=== PATIENT | male | born 1970 | race Caucasian/White ===

== ENCOUNTER 2017-08-14 01:29 | Emergency (ER) | payer BC, OTHER ==
[2017-08-14 01:58] VITALS: BP 133/90; PULSE 80; TEMP 98; BMI 31.4
[2017-08-14] MEDS ORDERED: TETRACAINE 0.5% HCL 0.6ML DROPPER.BOTTLE OS ONE (02:14)
[2017-08-14] MEDS ORDERED: TETRACAINE 0.5% OPHTH SOLN 2 ML BOTTLE ONE (02:16)
--- NOTE | 2017-08-14 02:27 | PDOC ---
History of Present Illness - General Chief Complaint: Eye Problem Stated Complaint: EYE PROBLEM Time Seen by Provider: 08/14/17 02:02 History Source: Patient Exam Limitations: No Limitations - History of Present Illness Initial Comments: 08/14/17 02:45 47-year-old male presents to the ER complaining of foreign body sensation to the left eye. Patient states he was sawing something today when he felt something go in his left eye. Patient denies eye pain, diplopia or visual disturbance. Unknown last tetanus. Past History - Past Medical History Allergies/Adverse Reactions: Allergies Allergy/AdvReac Type Severity Reaction Status Date / Time No Known Allergies Allergy Verified 08/14/17 01:57 Home Medications: Ambulatory Orders Ibuprofen [Motrin] 800 mg PO TID #20 tablet 05/07/14 Oxycodone HCl/Acetaminophen [Percocet 5-325 mg Tablet] 1 - 2 tab PO Q6H #20 tablet 05/07/14 Erythromycin 0.5% Eye Ointment [Erythromycin 0.5% Eye Ointment -] 1 applic OS DAILY #2 tube 08/14/17 - Immunization History Immunization Up to Date: Yes - Suicide/Smoking/Psychosocial Hx Smoking History: Never smoked Have you smoked in the past 12 months: No Number of Cigarettes Smoked Daily: 20 Information on smoking cessation initiated: No 'Breaking Loose' booklet given: 05/26/13 Hx Alcohol Use: No Drug/Substance Use Hx: No Substance Use Type: None Review of Systems - Review of Systems Able to Perform ROS?: Yes Comments:: 08/14/17 02:46 CONSTITUTIONAL: Absent: fever, chills HEENT: Absent: rhinorrhea, nasal congestion, throat pain, throat swelling, difficulty swallowing, mouth swelling, ear pain, eye pain, visual Changes Is the patient limited Bulgarian proficient: No *Physical Exam - Vital Signs Last Vital Signs Temp Pulse Resp BP Pulse Ox 98.0 F 80 18 133/90 97 08/14/17 01:54 08/14/17 01:54 08/14/17 01:54 08/14/17 01:54 08/14/17 01:54 - Physical Exam Comments: 08/14/17 02:46 GENERAL: Well developed, well nourished. Awake and alert. No acute distress. HEENT: Normocephalic, atraumatic. PERRLA, EOMI. No conjunctival pallor. Sclera are non- icteric. Moist mucous membranes. Oropharynx is clear. Left eye/fluorescein strip after tetracaine/2 drops Corneal abrasion to patients 3 o'clock position measuring approximately 1 mm Patient also has foreign bodies back to the 9 o'clock position EOMI No hyphema Conjunctiva not injected Procedure: Tetracaine 2 drops left eye Fluorescein stained Foreign body removed with 18-gauge needle Erythromycin ophthalmic ointment *DC/Admit/Observation/Transfer Diagnosis at time of Disposition: Corneal abrasion, left Qualifiers: Encounter type: initial encounter Qualified Code(s): S05.02XA - Injury of conjunctiva and corneal abrasion without foreign body, left eye, initial encounter Foreign body in eye Qualifiers: Encounter type: initial encounter Laterality: left Qualified Code(s): T15.92XA - Foreign body on external eye, part unspecified, left eye, initial encounter - Discharge Dispostion Disposition: HOME Condition at time of disposition: Fair Admit: No - Prescriptions Prescriptions: Erythromycin 0.5% Eye Ointment [Erythromycin 0.5% Eye Ointment -] 1 applic OS DAILY #2 tube - Referrals Referrals: Kane Hoskins MD [Staff Physician] - - Patient Instructions Printed Discharge Instructions: DI for Corneal Abrasion, DI for Foreign Body in the Eye Additional Instructions: Apply erythromycin ophthalmic ointment to the left eye 4 times a day for 3 days You must follow with the test design engineer on Tuesday Return back to the ER for blurry vision, visual disturbance or eye pain - Post Discharge Activity Forms/Work/School Notes: Back to Work
[2017-08-14] MEDS ORDERED: ERYTHROMYCIN 0.5% OPHTHALMIC OINTMENT 3.5 GM TUBE OS ONE (02:28)
[2017-08-14] MEDS ORDERED: ERYTHROMYCIN 0.5% OPHTHALMIC OINTMENT 3.5 GM TUBE ONE (02:29)
[2017-08-14] MEDS ORDERED: TETANUS AND DIPHTHERIA TOXOID 0.5 ML DISP.SYRIN IM ONE (02:41)
== END 2017-08-14 03:53 | disposition home or self-care (01) ==
LOC: JER 01:29
PROC: 08C9XZZ Extirpation of Matter from Left Cornea, External Approach (ICD-10-PCS; principal; 2017-08-14)
DX: T15.02XA Foreign body in cornea, left eye, initial encounter (principal); Y99.8 Other external cause status; Y93.89 Activity, other specified; Y92.89 Other specified places as the place of occurrence of the external cause
CPT/HCPCS: 99282-25

== ENCOUNTER 2017-12-05 16:59 | Emergency (ER) | payer OTHER, BC ==
[2017-12-05 17:04] VITALS: BP 146/80; PULSE 88; TEMP 98; BMI 31.4
--- NOTE | 2017-12-05 17:04 | PDOC ---
Rapid Medical Evaluation Time Seen by Provider: 12/05/17 17:02 Medical Evaluation: Allergies Allergy/AdvReac Type Severity Reaction Status Date / Time No Known Allergies Allergy Verified 12/05/17 17:01 12/05/17 17:02 Healthy 47-year-old male twisted right ankle stepping off of raised area into hole at work about 30 mins prior to arrival. V/s unremarkable. Swelling and tenderness right lateral malleolus. -Ankle xray -To FT for further evaluation
--- NOTE | 2017-12-05 17:31 | PDOC ---
History of Present Illness - General Chief Complaint: Injury Stated Complaint: ANKLE INJURY Time Seen by Provider: 12/05/17 17:02 History Source: Patient Exam Limitations: No Limitations - History of Present Illness Initial Comments: Patient is a 47-year-old male who states that he accidentally stepped into a hole in the ground approximately 1 hour prior to arrival and twisted his right ankle. He now has right ankle pain. Patient denies previous injury or surgeries to his right ankle. Patient describes the pain as a throb, worse with ambulation and rates it at a 3 out of 10. Patient denies any relieving factors however states weightbearing exacerbates his discomfort. 12/05/17 17:26 Past History - Travel Traveled outside of the country in the last 30 days: No Close contact w/someone who was outside of country & ill: No - Past Medical History Allergies/Adverse Reactions: Allergies Allergy/AdvReac Type Severity Reaction Status Date / Time No Known Allergies Allergy Verified 12/05/17 17:01 Home Medications: Ambulatory Orders NK [No Known Home Medication] 12/05/17 COPD: No DVT: No Dementia: No Diabetes: No - Immunization History Immunization Up to Date: Yes - Suicide/Smoking/Psychosocial Hx Smoking History: Never smoked Have you smoked in the past 12 months: No Number of Cigarettes Smoked Daily: 20 Information on smoking cessation initiated: Yes 'Breaking Loose' booklet given: 12/05/17 Hx Alcohol Use: No Drug/Substance Use Hx: No Substance Use Type: None Review of Systems - Review of Systems Able to Perform ROS?: Yes All Other Systems: Reviewed and Negative *Physical Exam - Vital Signs Last Vital Signs Temp Pulse Resp BP Pulse Ox 98.0 F 88 18 146/80 100 12/05/17 17:02 12/05/17 17:02 12/05/17 17:02 12/05/17 17:02 12/05/17 17:02 - Physical Exam Comments: Constitutional: VS stated, pt appears in no apparent distress; ambulated to examination room with a slight limp. SKin: Warm and dry. Intact, no lesions or excoriations. Head: Normocephalic; atraumatic Eyes: conjunctiva pink without injection or discharge. Throat: Oropharynx with pink and moist mucosa. Lungs: Bilateral breath sounds clear upon auscultation. No adventitious breath sounds. Heart: Regular rate and rhythm, S1/S2 auscultated. No murmurs, rubs, or gallops. No visible pulsations, heaves, or lifts on precordium. Musculoskeletal: Focused on the right ankle. Patient has pain upon palpation and moderate edema to the right lateral malleolus. Patient can dorsiflex and plantar flex without difficulty. Pedal pulses present, cap refill less than 2 seconds, sensation intact. Neurologic: Awake, alert. Conversation fluent. Psychiatric: Appropriate affect. 12/05/17 17:28 ED Treatment Course - RADIOLOGY Radiology Studies Ordered: 12/05/17 17:30 Pt's right ankle xray was reviewed by myself as negative. Pt placed in an dejuan wrap with crutches. *DC/Admit/Observation/Transfer Diagnosis at time of Disposition: Ankle sprain - Discharge Dispostion Disposition: HOME Condition at time of disposition: Worsened Decision to Admit order: No - Referrals Referrals: Sanaz Robles MD [Primary Care Provider] - - Patient Instructions Printed Discharge Instructions: DI for Ankle Sprain Additional Instructions: Dejuan wrap on for comfort measures, elevate, ice 20 minutes on/20 minutes off for the next 24 hours. Crutches, weightbearing as tolerated. Ibuprofen 600 mg every 6 hours. Follow-up with your PCP. - Post Discharge Activity Forms/Work/School Notes: Back to Work
== END 2017-12-05 17:36 | disposition home or self-care (01) ==
LOC: JERFT 16:59
DX: S93.401A Sprain of unspecified ligament of right ankle, initial encounter (principal); X50.1XXA Overexertion from prolonged static or awkward postures, initial encounter; Y93.01 Activity, walking, marching and hiking; Y92.89 Other specified places as the place of occurrence of the external cause; Y99.0 Civilian activity done for income or pay
CPT/HCPCS: 73610-TC-RT-FY; 73630-TC-RT-FY; 99281-25

== ENCOUNTER 2018-08-01 11:00 | Emergency (ER) | payer OTHER ==
[2018-08-01 11:09] VITALS: BP 135/74; PULSE 89; TEMP 98.5; BMI 32.3
[2018-08-01] MEDS ORDERED: KETOROLAC TROMETHAMINE 60 MG/2 ML VIAL IM ONE (12:02)
[2018-08-01] MEDS ORDERED: SODIUM CHLORIDE 1,000 ML IV STA (12:15)
--- NOTE | 2018-08-01 12:19 | PDOC ---
History of Present Illness - General Chief Complaint: Pain, Acute Stated Complaint: LOWER BACK / ABD PAIN Time Seen by Provider: 08/01/18 11:53 History Source: Patient Exam Limitations: Clinical Condition - History of Present Illness Initial Comments: 08/01/18 12:14 Knee stones present with complaint of three-day history of left lower quadrant pain and right flank pain which is consistent with the pain she gets when he has kidney stone. Patient reported nausea but no vomiting. Patient was seen in urgent care yesterday and was told he might have a kidney stone and discharged home on Levaquin antibiotics but was not given anything for pain. Patient came back today. Due to pain getting worse. Denies vomiting, fever, diarrhea. Denies any other symptoms Timing/Duration: other (2 days) Past History - Past Medical History Allergies/Adverse Reactions: Allergies Allergy/AdvReac Type Severity Reaction Status Date / Time No Known Allergies Allergy Verified 12/05/17 17:01 Home Medications: Ambulatory Orders Ketorolac Tromethamine [Toradol -] 10 mg PO Q6H PRN #20 tablet 08/01/18 Tamsulosin HCl [Flomax] 0.4 mg PO DAILY #7 capsule 08/01/18 COPD: No DVT: No Dementia: No Diabetes: No - Immunization History Immunization Up to Date: Yes - Suicide/Smoking/Psychosocial Hx Smoking History: Current every day smoker Have you smoked in the past 12 months: Yes Number of Cigarettes Smoked Daily: 12 Information on smoking cessation initiated: No 'Breaking Loose' booklet given: 12/05/17 Hx Alcohol Use: No Drug/Substance Use Hx: No Substance Use Type: None Review of Systems - Review of Systems Able to Perform ROS?: Yes Is the patient limited [place]ican proficient: No Constitutional: No: Fever, Weakness HEENTM: No: Symptoms Reported, Dental Problems Cardiac (ROS): No: Symptoms Reported ABD/GI: Yes: See HPI, Nausea, Abdominal cramping (right flank). No: Vomiting : Yes: Flank Pain (right ), Pain (right flank and left lower abd). No: Burning, Dysuria, Discharge, Frequency, Incontinence, Urgency, Testicular Mass, Testicular Swelling, Testicular Pain All Other Systems: Reviewed and Negative *Physical Exam - Vital Signs Last Vital Signs Temp Pulse Resp BP Pulse Ox 98.5 F 89 18 135/74 100 08/01/18 11:06 08/01/18 11:06 08/01/18 11:06 08/01/18 11:06 08/01/18 11:06 - Physical Exam Comments: 08/01/18 12:16 GENERAL: Well developed, well nourished. Awake and alert. No acute distress. HEENT: Normocephalic, atraumatic. PERRLA, EOMI. No conjunctival pallor. Sclera are non-icteric. Moist mucous membranes. Oropharynx is clear. NECK: Supple. Full ROM. CARDIOVASCULAR: Regular rate and rhythm. No murmurs, rubs, or gallops. Distal pulses are 2+ and symmetric. PULMONARY: No evidence of respiratory distress. Lungs clear to auscultation bilaterally. No wheezing, rales or rhonchi. ABDOMINAL: Soft. Non-tender. Non-distended. No rebound or guarding. No organomegaly. Normoactive bowel sounds. MUSCULOSKELETAL Normal range of motion at all joints. SKIN: Warm and dry. Normal capillary refill. No rashes. No jaundice. NEUROLOGICAL: Alert, awake, appropriate. Gait is normal without ataxia. PSYCHIATRIC: Cooperative. Good eye contact. Appropriate mood General Appearance: Yes: Nourished, Appropriately Dressed. No: Apparent Distress ED Treatment Course - LABORATORY CBC & Chemistry Diagram: 08/01/18 12:10 08/01/18 12:10 - RADIOLOGY Radiology Studies Ordered: Category Date Time Status SPIRAL- RENAL-STONE CT [CT] Stat CT Scan 08/01/18 12:02 Ordered Medical Decision Making - Medical Decision Making 08/01/18 12:17 Patient with history of kidney stones present with complaint of three-day history of left abdominal back pain and right flank pain with nausea. Patient reports seen in urgent care which he was prescribed Levaquin antibiotics but nothing for pain and pain has been persistent. Denies vomiting, diarrhea, fever or chills. Clinical exam unremarkable with no tenderness to abdomen or flank area. No CVA tenderness. CBC, CMP and urine labs ordered. Spiral CT ordered to rule out kidney stone. Toradol 60 mg IM ordered for pain. IV hydration with 1 L normal saline ordered. Treat based on lab results 08/01/18 14:[address] shows 3mm partially obstructing stone at UVJ on left side. Patient report improvment of pain with toradol. CBC shows mild elevated WBC which could be stemmed from renal stone. Patient afebrile and stable for outpatient management with PO toradol and flomax with urology follow-up. Patient already on levaquin Abx from urgent care *DC/Admit/Observation/Transfer Diagnosis at time of Disposition: Kidney stone on left side, Flank pain, acute - Discharge Dispostion Disposition: HOME Condition at time of disposition: Stable Decision to Admit order: No - Prescriptions Prescriptions: Ketorolac Tromethamine [Toradol -] 10 mg PO Q6H PRN #20 tablet PRN Reason: pain Tamsulosin HCl [Flomax] 0.4 mg PO DAILY #7 capsule - Referrals Referrals: Duarte Jorgensen MD [Staff Physician] - - Patient Instructions Printed Discharge Instructions: Kidney Stones -- Adult Additional Instructions: Take medications as prescribed. Increase fluid intake. Take prescribed antibiotics from urgent care and finish it. Follow-up with referred urology - Post Discharge Activity
[2018-08-01] MEDS ORDERED: KETOROLAC TROMETHAMINE 60 MG/2 ML VIAL ONE (12:29)
[2018-08-01 12:37] LABS: BASO % 0.5 % (0-2.0); EOS % 0.1 % (0-4.5); HEMATOCRIT 40.7 % (35.4-49); HEMOGLOBIN 14.1 GM/dL (11.7-16.9); LYMPH % 15.4 % (8-40); MCH 30.8 pg (25.7-33.7); MCHC 34.6 g/dl (32.0-35.9); MEAN CELL VOLUME 89.1 fl (80-96); MEAN PLT VOLUME 8.1 fl (7.5-11.1); MONO % 14.7 % (3.8-10.2); NEUT % 69.3 % (42.8-82.8); PLATELET COUNT 215 K/MM3 (134-434); RBC 4.57 M/mm3 (4.00-5.60); WHITE BLOOD COUNT 12.9 K/mm3 (4.0-10.0)
[2018-08-01 12:38] LABS: EPI CELLS 1.3 /HPF (0-5/HPF); URINE APPEARANCE CLEAR; URINE BACTERIA 0.5 /hpf (NEGATIVE); URINE BILIRUBIN NEGATIVE (NEGATIVE); URINE CASTS 9 /lpf (0-8); URINE COLOR YELLOW; URINE GLUCOSE (UA) NEGATIVE (NEGATIVE); URINE KETONE TRACE (NEGATIVE); URINE LEUK ESTERASE NEGATIVE (NEGATIVE); URINE NITRITE NEGATIVE (NEGATIVE); URINE PROTEIN 2+ (NEGATIVE); URINE WBC 1 /hpf (0-5)
[2018-08-01] MEDS ORDERED: KETOROLAC TROMETHAMINE 30 MG/1 ML VIAL IVPUSH ONE (12:50)
[2018-08-01 13:17] LABS: ALBUMIN 3.2 g/dl (3.4-5.0); ALK PHOS 97 U/L (45-117); ANION GAP 7 MMOL/L (8-16); BILIRUBIN,TOTAL 0.2 mg/dL (0.2-1); BLOOD UREA NITROGEN 15 mg/dL (7-18); CALCIUM 8.9 mg/dL (8.5-10.1); CHLORIDE 103 mmol/L (98-107); CO2 24 mmol/L (21-32); GLUCOSE,RANDOM 109 mg/dL (74-106); POTASSIUM 4.4 mmol/L (3.5-5.1); SGOT/AST 30 U/L (15-37); SGPT/ALT 28 U/L (13-61); SODIUM 135 mmol/L (136-145); TOT PROT 7.2 g/dl (6.4-8.2)
--- NOTE | 2018-08-01 13:17 | PDOC ---
*Physical Exam - Vital Signs Last Vital Signs Temp Pulse Resp BP Pulse Ox 98.5 F 89 18 135/74 100 08/01/18 11:06 08/01/18 11:06 08/01/18 11:06 08/01/18 11:06 08/01/18 11:06 ED Treatment Course - LABORATORY CBC & Chemistry Diagram: 08/01/18 12:10 08/01/18 12:10 - ADDITIONAL ORDERS Additional order review: Laboratory Results 08/01/18 12:10 Urine Color Yellow Urine Appearance Clear Urine pH 5.0 Ur Specific [place] 1.032 Urine Protein 2+ H Urine Glucose (UA) Negative Urine Ketones Trace H Urine Blood 3+ H Urine Nitrite Negative Urine Bilirubin Negative Urine Urobilinogen 1.0 Ur Leukocyte Esterase Negative Urine WBC (Auto) 1 Urine Casts (Auto) 9 U Epithel Cells (Auto) 1.3 Urine Bacteria (Auto) 0.5 08/01/18 12:10 RBC 4.57 MCV 89.1 MCHC 34.6 RDW 14.0 MPV 8.1 Neutrophils % 69.3 Lymphocytes % 15.4 Monocytes % 14.7 H Eosinophils % 0.1 Basophils % 0.5 - Medications Given in the ED: ED Medications Discontinued Medications Generic Name Dose Route Start Last Admin Trade Name Freq PRN Reason Stop Dose Admin Sodium Chloride 1,000 mls @ 1,000 mls/hr 08/01/18 12:15 08/01/18 12:52 Normal Saline - IV 08/01/18 13:14 1,000 mls/hr ASDIR STA Administration Ketorolac Tromethamine 30 mg 08/01/18 12:50 08/01/18 12:52 Toradol Injection - IVPUSH 08/01/18 12:51 30 mg ONCE ONE Administration Medical Decision Making - Medical Decision Making 08/01/18 13:16 48y/o M h/o kidney stones with flank pain. treated with levaquin by pcp for presumed UTI, now with increased pain. labs, ua ctap pain control reassess. 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 Cr normal. stable for d/c and f/u. understands return criteria. *DC/Admit/Observation/Transfer - Discharge Dispostion Condition at time of disposition: Stable - Referrals - Patient Instructions - Post Discharge Activity
[2018-08-01 14:02] LABS: URINE RBC 4.5 /hpf (0-4)
== END 2018-08-01 15:00 | disposition home or self-care (01) ==
LOC: JER 11:00
PROC: 3E0337Z Introduction of Electrolytic and Water Balance Substance into Peripheral Vein, Percutaneous Approach (ICD-10-PCS; principal; 2018-08-01)
PROC: 3E0333Z Introduction of Anti-inflammatory into Peripheral Vein, Percutaneous Approach (ICD-10-PCS; 2018-08-01)
DX: N20.0 Calculus of kidney (principal); Z87.442 Personal history of urinary calculi
CPT/HCPCS: 36415; 74176-TC; 80053; 81003; 85025; 99282-25; J7030

== ENCOUNTER 2018-08-14 13:00 | Emergency (ER) | payer OTHER ==
[2018-08-14 13:44] VITALS: BP 129/85; PULSE 85; TEMP 97.8; BMI 32.3
[2018-08-14] MEDS ORDERED: KETOROLAC TROMETHAMINE 60 MG/2 ML VIAL IM ONE (13:45)
[2018-08-14] MEDS ORDERED: KETOROLAC TROMETHAMINE 60 MG/2 ML VIAL ONE (13:49)
--- NOTE | 2018-08-14 14:15 | PDOC ---
History of Present Illness - General Chief Complaint: Injury Stated Complaint: RIGHT SHOULDER PAIN Time Seen by Provider: 08/14/18 13:38 History Source: Patient Exam Limitations: No Limitations - History of Present Illness Initial Comments: 08/14/18 13:46 48M with no PMH who presents with R shoulder pain. The patient states that he feels a sharp pain from his R paraspinal neck down to his R elbow. He states that this first happened 3 weeks ago and then the pain resided on its own after taking aleve/motrin. He states that this pain first happened when he was taking TV's off the wall. The pain subsided with aleve/motrin. Today, he was moving heavy bags of garbage and it irritated his shoulder. He denies numbness, tingling, weakness, fever, chills, CP, SOB. Past History - Past Medical History Allergies/Adverse Reactions: Allergies Allergy/AdvReac Type Severity Reaction Status Date / Time No Known Allergies Allergy Verified 08/14/18 13:38 Home Medications: Ambulatory Orders NK [No Known Home Medication] 08/14/18 COPD: No DVT: No Dementia: No Diabetes: No - Immunization History Immunization Up to Date: Yes - Suicide/Smoking/Psychosocial Hx Smoking History: Current every day smoker Have you smoked in the past 12 months: Yes Number of Cigarettes Smoked Daily: 20 Information on smoking cessation initiated: No 'Breaking Loose' booklet given: 12/05/17 Hx Alcohol Use: No Drug/Substance Use Hx: No Substance Use Type: None Review of Systems - Review of Systems Able to Perform ROS?: Yes Comments:: 08/14/18 14:15 GENERAL/CONSTITUTIONAL: No fever or chills. No weakness. HEAD, EYES, EARS, NOSE AND THROAT: No change in vision. No ear pain or discharge. No sore throat. CARDIOVASCULAR: No chest pain, palpitations, or lightheadedness. RESPIRATORY: No cough, wheezing, shortness of breath, or hemoptysis. GASTROINTESTINAL: No nausea, vomiting, diarrhea, constipation, or abdominal pain. GENITOURINARY: No dysuria, frequency, hematuria, or change in urination. MUSCULOSKELETAL: + for R shoulder pain. SKIN: No rash or lesions. NEUROLOGIC: No headache, numbness, tingling, focal weakness, loss of consciousness, or change in strength/sensation. Is the patient limited Yi proficient: No *Physical Exam - Vital Signs Last Vital Signs Temp Pulse Resp BP Pulse Ox 97.8 F 85 15 129/85 97 08/14/18 13:23 08/14/18 13:23 08/14/18 13:23 08/14/18 13:23 08/14/18 13:23 - Physical Exam Comments: 08/14/18 14:16 GENERAL: Well developed, well nourished. Awake and alert. No acute distress. HEENT: Normocephalic, atraumatic. Hearing grossly normal. Moist mucous membranes. PERRLA, EOMI. No conjunctival pallor. Sclera are non-icteric. NECK: Supple. Full ROM. No JVD. CARDIOVASCULAR: Distal pulses are 2+ and symmetric. MUSCULOSKELETAL: Normal range of motion at all joints. No bony deformities or tenderness. EXTREMITIES: No cyanosis. No clubbing. No edema. No calf tenderness or swelling. SKIN: Warm and dry. Normal capillary refill. No rashes. No jaundice. NEUROLOGICAL: Alert, awake, appropriate. Cranial nerves 2-12 grossly intact. No deficits to light touch and temperature in face, upper extremities and lower extremities. 5/5 strength in deltoids, biceps, triceps, quadriceps, hamstrings, and gastrocnemius. Normoreflexic in the upper and lower extremities. Normal speech. Gait is normal without ataxia. PSYCHIATRIC: Cooperative. Good eye contact. Appropriate mood and affect. Medical Decision Making - Medical Decision Making 08/14/18 14:17 48M with no PMH who presents with R shoulder pain, likely MSK/cervical radiculopathy. Will give toradol for inflammation and neurosurgery referral. *DC/Admit/Observation/Transfer Diagnosis at time of Disposition: Shoulder sprain Qualifiers: Encounter type: initial encounter Shoulder sprain type: unspecified sprain Laterality: right Qualified Code(s): S43.401A - Unspecified sprain of right shoulder joint, initial encounter - Discharge Dispostion Disposition: HOME Condition at time of disposition: Good Decision to Admit order: No - Referrals Referrals: Lelo Hannah MD [Primary Care Provider] - Sj Riley MD, FAANS [Staff Physician] - - Patient Instructions Printed Discharge Instructions: DI for Shoulder Pain Additional Instructions: Your ER visit is not complete until your follow up with your primary care physician. Please follow up with your primary care physician in 1-2 days. Please follow up with Dr. Riley for your neck and shoulder pain. Please return to the ER if you have any signs or symptoms of chest pain, shortness of breath, uncontrollable fever, chills, nausea, vomiting, numbness, tingling, or weakness in any part of your body, changes in vision, or slurred speech. Please take your medications as prescribed. Please return to the ER if symptoms persist, worsen, or new symptoms arise. - Post Discharge Activity
[2018-08-14] MEDS ORDERED: METHOCARBAMOL 500 MG TABLET PO ONE (14:20)
[2018-08-14] MEDS ORDERED: METHOCARBAMOL 500 MG TABLET ONE (14:20)
--- NOTE | 2018-08-14 14:20 | PDOC ---
Attending Attestation - Resident Resident Name: Sukhjinder Goodrich - ED Attending Attestation I have performed the following: I have examined & evaluated the patient, The case was reviewed & discussed with the resident, I agree w/resident's findings & plan, Exceptions are as noted - HPI HPI: 08/14/18 14:45 48yo male with R upper back/shoulder pain. Pt states he was lifting a 70 inch tv off a wall and it fell with its weight onto his R arm about 3 weeks ago. Bowers a twinge of pain at the time to the R upper back/neck. States he has felt the pain daily. States he feels the pain coming down the R arm. No weakness. No paresthesias. Has used motrin/aleve for the pain which does help. Has used epson salt bathes, which does help. Has used ice - which helps. States still with pain and feels tight today. - Physicial Exam PE: 08/14/18 14:46 Gen: aaox3, nad heart: +s1s2 reg lungs: cta b/l neck: no midline ttp, no stepoffs or deformities, R paraspinal and trapezius ttp , tight/ropy muscles abd: soft, nt/nd +bs ext: muscle strength 5/5 UE and LE, sensation intact, pulses intact, brisk cap refill to hands - Medical Decision Making 08/14/18 14:19 I, Dr. Zina Murphy, DO, attest that this document has been prepared under my direction and personally reviewed by me in its entirety. I further attest, that it accurately reflects all work, treatment, procedures and medical decision -making performed by me. 08/14/18 14:47 a/p: 48yo male with R upper back and neck pain -suspect muscle spasm from carrying heavy tv off the wall -pt from work with pain today -no neuro deficits -will give robaxin and im toradol -will monitor and reassess 08/14/18 14:49 pt states pain improved rx for robaxin sent to pharmacy will give work note and neurosx follow up
== END 2018-08-14 14:53 | disposition home or self-care (01) ==
LOC: FER 13:00
PROC: 3E0233Z Introduction of Anti-inflammatory into Muscle, Percutaneous Approach (ICD-10-PCS; principal; 2018-08-14)
DX: S43.401A Unspecified sprain of right shoulder joint, initial encounter (principal); X58.XXXA Exposure to other specified factors, initial encounter; Y93.89 Activity, other specified; Y92.9 Unspecified place or not applicable
CPT/HCPCS: 99281-25

== ENCOUNTER 2022-12-08 06:59 | Emergency (ER) | payer BC ==
[2022-12-08 07:04] VITALS: BP 142/78; PULSE 73; RESP 18; TEMP 98; BMI 33.0
[2022-12-08] MEDS ORDERED: ONDANSETRON 4 MG/2 ML VIAL IVPUSH ONE (07:41)
[2022-12-08] MEDS ORDERED: SODIUM CHLORIDE 0.9% 500 ML INFUS.BAG IV ONE (07:41)
[2022-12-08] MEDS ORDERED: KETOROLAC TROMETHAMINE 30 MG/1 ML VIAL IVPUSH ONE (07:41)
[2022-12-08] MEDS ORDERED: KETOROLAC TROMETHAMINE 30 MG/1 ML VIAL ONE (08:12)
[2022-12-08] MEDS ORDERED: ONDANSETRON 4 MG/2 ML VIAL ONE (08:13)
[2022-12-08 08:58] LABS: BASO % 0.4 % (0-2.0); EOS % 0.5 % (0-4.5); HEMATOCRIT 49.3 % (35.4-49); HEMOGLOBIN 16.4 GM/dL (11.7-16.9); LYMPH % 13.6 % (8-40); MCH 29.3 pg (25.7-33.7); MCHC 33.3 g/dl (32.0-35.9); MEAN CELL VOLUME 87.9 fl (80-96); MEAN PLT VOLUME 7.6 fl (7.5-11.1); MONO % 7.9 % (3.8-10.2); NEUT % 77.6 % (42.8-82.8); PLATELET COUNT 254 10^3/uL (134-434); RBC 5.61 M/mm3 (4.00-5.60); RDW 14.4 % (11.9-15.9); WHITE BLOOD COUNT 14.5 K/mm3 (4.0-10.0)
[2022-12-08 09:16] LABS: POTASSIUM 4.5 mmol/L (3.5-5.1)
[2022-12-08 09:18] LABS: ALBUMIN 3.8 g/dl (3.4-5.0); BLOOD UREA NITROGEN 18.3 mg/dL (7-18); CALCIUM 9.1 mg/dL (8.5-10.1)
[2022-12-08 09:22] LABS: CREATININE 1.4 mg/dL (0.55-1.3)
[2022-12-08 09:23] LABS: BILIRUBIN,TOTAL 0.2 mg/dL (0.2-1); TOT PROT 7.6 g/dl (6.4-8.2)
[2022-12-08] MEDS ORDERED: CEFTRIAXONE 1,000 MG in DEXTROSE 5%-WATER - 50 ML IVPB ONE (11:56)
[2022-12-08] MEDS ORDERED: CEFTRIAXONE 1 GM/50 ML BAG ONE (11:58)
[2022-12-08 12:06] LABS: EPI CELLS 3 /uL (0-25.1); HYALINE CASTS 0 /uL (0-3.1); URINE APPEARANCE CLEAR; URINE BACTERIA 15 /uL (0-1359); URINE BILIRUBIN NEGATIVE (NEGATIVE); URINE COLOR YELLOW; URINE GLUCOSE (UA) 1+ (NEGATIVE); URINE KETONE NEGATIVE (NEGATIVE); URINE LEUK ESTERASE NEGATIVE (NEGATIVE); URINE NITRITE NEGATIVE (NEGATIVE); URINE PROTEIN TRACE (NEGATIVE); URINE RBC 27 /uL (0-23.9); URINE UROBILINOGEN 0.2 mg/dL (0.2-1.0); URINE WBC 8 /uL (0-25.8)
[2022-12-08] MEDS ORDERED: TAMSULOSIN HCL 0.4 MG CAP PO ONE (13:02)
[2022-12-08] MEDS ORDERED: TAMSULOSIN HCL 0.4 MG CAP ONE (13:11)
== END 2022-12-08 13:20 | disposition home or self-care (01) ==
LOC: JER 06:59
PROC: 3E03329 Introduction of Other Anti-infective into Peripheral Vein, Percutaneous Approach (ICD-10-PCS; principal; 2022-12-08)
PROC: 3E033GC Introduction of Other Therapeutic Substance into Peripheral Vein, Percutaneous Approach (ICD-10-PCS; 2022-12-08)
PROC: 3E033GC Introduction of Other Therapeutic Substance into Peripheral Vein, Percutaneous Approach (ICD-10-PCS; 2022-12-08)
DX: N20.0 Calculus of kidney (principal)
CPT/HCPCS: 36415; 74176-TC; 80053; 81003; 85025; 87086; 99284-25